=== PATIENT | female | born 1970 | race African-American/Black ===

== ENCOUNTER 2017-03-18 22:21 | Emergency (ER) | payer SELFPAY ==
[~2017-03-18] VITALS: Ht 162.6 cm; Wt 129.3 kg
[2017-03-18 22:56] VITALS: BP 154/86
[2017-03-19] MEDS ORDERED: SULF1TAB24 PO (00:02)
--- NOTE | 2017-03-19 00:03 | PHYS DOC ---
Past Medical History Past Medical History: Diabetes-Type II, GERD, Hypertension Past Surgical History: Cholecystectomy, , Tonsillectomy, Other Additional Past Surgical Histo: "X40" ABD CYST TUMOR REMOVAL, BREAST REDUCTION Alcohol Use: None Drug Use: None Adult General Chief Complaint Chief Complaint: INSECT BITE HPI HPI Patient is a 46 year old female who complains of a lesion to the medial aspect of her right ankle for about 4 days, she doesn't know what started it, it might of been a bug bite, but now it is red and somewhat sore. She's been putting multiple evgu-fqn-[id number] things on it including "Gold Vasques lotion" and hydrogen peroxide. Patient is diabetic, treated only with metformin. She does not have a history of problems with cellulitis or skin infections. Review of Systems Review of Systems Constitutional: Denies fever or chills [] Integument: She has other insect bites on her extremities Current Medications Current Medications Current Medications Medications (Trade) Dose Ordered Sig/Cady Start Time Stop Time Status Last Admin Dose Admin Trimethoprim/ Sulfamethoxazole (Bactrim Ds) 1 tab 1X ONCE 03/19/17 00:15 03/19/17 00:16 DC 03/19/17 00:23 1 TAB Allergies Allergies Allergies Coded Allergies Type Severity Reaction Last Updated Verified codeine Allergy Intermediate Hives 03/18/17 Yes tetanus and diphtheria toxoids Allergy Intermediate Rash 03/18/17 Yes tuberculin, purified protein deriva Allergy Intermediate Rash 03/18/17 Yes Physical Exam Physical Exam Constitutional: Well developed, well nourished, no acute distress, non-toxic appearance. [] HENT: Normocephalic, atraumatic, bilateral external ears normal, nose normal. [ ] Eyes: conjunctiva normal, no discharge. [] Neck: Normal range of motion, no stridor. [] Skin: Warm, dry, no erythema, multiple small red lesions consistent with uncomplicated insect bites. On the right medial ankle, there is a 1 cm diameter scabbed lesion surrounded by approximately 6-8 cm diameter area of redness which is also warm and tender. There is no indication of fluctuance, no indication of abscess. Just some small amount of cellulitis. Back: No tenderness, no CVA tenderness. [] Extremities: No tenderness, no cyanosis, no clubbing, ROM intact, no edema. [] Neurologic: Alert and oriented X 3, normal motor function, normal sensory function, no focal deficits noted. [] Current Patient Data Vital Signs Vital Signs Date Time Temp Pulse Resp B/P (MAP) Pulse Ox O2 Delivery O2 Flow Rate FiO2 03/18/17 22:56 98.5 99 22 100 Room Air 98.5 EKG EKG [] Radiology/Procedures Radiology/Procedures [] Course & Med Decision Making Course & Med Decision Making Pertinent Labs and Imaging studies reviewed. (See chart for details) [] Dragon Disclaimer Dragon Disclaimer This electronic medical record was generated, in whole or in part, using a voice recognition dictation system. Departure Departure Impression: Primary Impression: Cellulitis, leg Additional Impression: Insect bite of leg Disposition: HOME, SELF-CARE Condition: STABLE Referrals: HIEN GUEVARA MD (PCP) Patient Instructions: Cellulitis, [id number] Scripts Sulfamethoxazole/Trimethoprim (BACTRIM DS TABLET) 1 Each Tablet 1 TAB PO BID for cellulitis from insect bite, #14 TAB Prov: VAN HUTCHINS MD 03/19/17 Problem Qualifiers VAN HUTCHINS MD Mar 19, 2017 00:03
[2017-03-19] MEDS ORDERED: SMZ/TMP 800/160MG TABLET. PO ONE (00:15)
== END 2017-03-19 00:26 | disposition home or self-care (01) ==
LOC: ER 22:21
DX: L03.115 Cellulitis of right lower limb (principal); S80.862A Insect bite (nonvenomous), left lower leg, initial encounter; S80.861A Insect bite (nonvenomous), right lower leg, initial encounter; I10 Essential (primary) hypertension; E11.9 Type 2 diabetes mellitus without complications; K21.9 Gastro-esophageal reflux disease without esophagitis; Z88.7 Allergy status to serum and vaccine; Z88.8 Allergy status to other drugs, medicaments and biological substances; Z90.49 Acquired absence of other specified parts of digestive tract; Z79.84 Long term (current) use of oral hypoglycemic drugs; Z88.5 Allergy status to narcotic agent; W57.XXXA Bitten or stung by nonvenomous insect and other nonvenomous arthropods, initial encounter; Y93.89 Activity, other specified; Y92.89 Other specified places as the place of occurrence of the external cause; Y99.8 Other external cause status
CPT/HCPCS: 99283

== ENCOUNTER 2019-09-30 11:13 | Emergency (ER) | payer OTHER ==
[~2019-09-30] VITALS: Ht 165.1 cm; Wt 109.0 kg
[~2019-09-30 11:13] MED LIST: SULF1TAB24 PO
[2019-09-30 12:30] VITALS: BP 159/122
--- NOTE | 2019-09-30 12:53 | RAD ---
EXAM: Chest, 2 views. HISTORY: Cough. Fever. COMPARISON: None. FINDINGS: 2 views of the chest are obtained. There is no infiltrate, pleural effusion or pneumothorax. The heart is normal in size. IMPRESSION: No acute pulmonary finding. Electronically signed by: Kathryn Arnold MD (09/30/2019 12:50 PM) [facility] [place]
[2019-09-30] MEDS ORDERED: BENZ100C PO (13:06)
[2019-09-30] MEDS ORDERED: METH4TAB2 PO (13:06)
[2019-09-30] MEDS ORDERED: ALBU2.5V8 IH (13:06)
--- NOTE | 2019-09-30 13:07 | PHYS DOC ---
Past Medical History Past Medical History: Diabetes-Type II, GERD, Hypertension Past Surgical History: Cholecystectomy, , Tonsillectomy, Other Additional Past Surgical Histo: "X40" ABD CYST TUMOR REMOVAL, BREAST REDUCTION Alcohol Use: None Drug Use: None Adult General Chief Complaint Chief Complaint: FLU SYMPTOM HPI HPI Patient is a 49 year old female who presents with cough, sore throat, body aches, fever, headache this been ongoing since September 14. Patient is also been having some shortness of breath. The patient states is not improving. The patie nt's been taking NyQuil at home however that has not been helping. She is afebrile on arrival to the ER. Denies any other complaints. Patient able keep fluids down at home. Complete ROS were reviewed and found to be within normal limits, except as documented in the HPI Allergies Allergies Allergies Coded Allergies Type Severity Reaction Last Updated Verified codeine Allergy Intermediate Hives 03/18/17 Yes tetanus and diphtheria toxoids Allergy Intermediate Rash 03/18/17 Yes tuberculin, purified protein deriva Allergy Intermediate Rash 03/18/17 Yes Physical Exam Physical Exam Constitutional: Well developed, well nourished, no acute distress, non-toxic appearance. [] HENT: Normocephalic, atraumatic, bilateral external ears normal, oropharynx moist, no oral exudates, nose normal. [] Cardiovascular:Heart rate regular rhythm, no murmur [] Lungs & Thorax: Bilateral breath sounds clear to auscultation [] Abdomen: Bowel sounds normal, soft, no tenderness, no masses, no pulsatile masses. [] Skin: Warm, dry, no erythema, no rash. [] Neurologic: Alert and oriented X 3, normal motor function, normal sensory function, no focal deficits noted. [] Psychologic: Affect normal, judgement normal, mood normal. [] Current Patient Data Vital Signs Vital Signs Date Time Temp Pulse Resp B/P (MAP) Pulse Ox O2 Delivery O2 Flow Rate FiO2 09/30/19 12:30 97.8 99 22 159/122 (134) 99 Room Air 97.8 EKG EKG [] Radiology/Procedures Radiology/Procedures [][facility] [address] [place], [place] [id number] IMAGING REPORT Signed PATIENT: RIMMA FELICIANO I ACCOUNT: [id number] : 1970 LOCATION: ER AGE: 49 SEX: F EXAM STATUS: REG ER ORD. PHYSICIAN: TEA PRUETT APRN REASON: cough, fever PROCEDURE: CHEST PA & LATERAL EXAM: Chest, 2 views. HISTORY: Cough. Fever. COMPARISON: None. FINDINGS: 2 views of the chest are obtained. There is no infiltrate, pleural effusion or pneumothorax. The heart is normal in size. IMPRESSION: No acute pulmonary finding. Electronically signed by: Kathryn Wilson MD (09/30/2019 12:50 PM) [facility] [place] DICTATED and SIGNED BY: KATHRYN WILSON MD DATE: 09/30/19 1250 Course & Med Decision Making Course & Med Decision Making Pertinent Labs and Imaging studies reviewed. (See chart for details) Will get Chest x-ray. Chest x-ray is unremarkable. Will place on inhaler, medrol dose pack, and Tessalon perles. Will d/c home. Dragon Disclaimer Dragon Disclaimer This electronic medical record was generated, in whole or in part, using a voice recognition dictation system. Departure Departure Impression: Primary Impression: Viral syndrome Disposition: HOME, SELF-CARE Condition: STABLE Referrals: MIKE SCHUSTER MD (PCP) Patient Instructions: Viral Syndrome Additional Instructions: Thank you for visiting [facility]. We appreciate you trusting us with your care. If any additional problems come up don't hesitate to return to visit us. Please follow up with your primary care provider so they can plan additional care if needed and know about the problem that you had. If symptoms worsen come back to the Emergency Department. Any concerning symptoms that start such as chest pain, shortness of air, weakness or numbness on one side of the body, running high fevers or any other concerning symptoms return to the ER. Please fill your medications at any pharmacy and follow the prescription in structions. Please drink plenty of fluids. If unable to keep fluids down please return to ER. Please get Tylenol and Ibuprofen over the counter. Give each medication every 6 hours as directed by the medication labels. In order to utilize the peak of the medications stagger the medications to where the child is getting one of the medications every 3 hours. For example if you give Ibuprofen at 3 PM, you then give Tylenol at 6 PM and Ibuprofen again at 9 PM, and then Tylenol at midnight. Please get Zyrtec over the counter and take per label instructions for runny nose. Scripts Benzonatate (TESSALON PERLE) 100 Mg Capsule 100 MG PO TID PRN for COUGH, #21 CAP Prov: TEA PRUETT APRN 09/30/19 Methylprednisolone (MEDROL) 4 Mg Tab.ds.pk 1 PKG PO UD, #1 PKG Prov: TEA PRUETT APRN 09/30/19 Albuterol Sulfate (PROAIR HFA INHALER) 8.5 Gm Hfa.aer.ad 2 PUFF IH PRN Q4-6HRS PRN for wheezing for 21 Days, #1 INHALER 0 Refills Prov: TEA PRUETT APRN 09/30/19 TEA PRUETT APRN Sep 30, 2019 13:07
== END 2019-09-30 13:13 | disposition home or self-care (01) ==
LOC: ER 11:13
DX: B34.9 Viral infection, unspecified (principal); R50.9 Fever, unspecified; R05 Cough; R51 Headache; E11.9 Type 2 diabetes mellitus without complications; K21.9 Gastro-esophageal reflux disease without esophagitis; I10 Essential (primary) hypertension; Z90.49 Acquired absence of other specified parts of digestive tract; Z90.89 Acquired absence of other organs; Z98.890 Other specified postprocedural states; Z88.5 Allergy status to narcotic agent; Z88.7 Allergy status to serum and vaccine
CPT/HCPCS: 71046; 99284